=== PATIENT | male | born 1990 | race Caucasian/White ===

== ENCOUNTER 2018-07-30 15:28 | Inpatient (IN) | payer OTHER ==
[~2018-07-30] VITALS: Ht 175.3 cm; Wt 240.4 kg
[2018-07-30 15:33] VITALS: BP 144/87
--- NOTE | 2018-07-30 15:46 | NUR ---
27 YO MALE BIB EMS FROM HOME FOR SUICIDAL IDEATIONJ, AWAKE AND ALERT ON ARRIVAL. PLACED ON HLD BY [place] [employer]. . DENIES N/V/D; SKIN IS PINK/WARM/DRY; AAOX4 WITH EVEN AND STEADY GAIT; LUNGS CLEAR BL; HR EVEN AND REGULAR; PT DENIES ANY FEVER, CP, SOB, OR COUGH AT THIS TIME; PATIENT STATES PAIN OF 0/10 AT THIS TIME; VSS; PATIENT POSITIONED FOR COMFORT; HOB ELEVATED; BEDRAILS UP X2; BED DOWN. ER MD MADE AWARE OF PT STATUS.
[2018-07-30 16:09] LABS: BASOPHILS % (AUTO) 0.6 % (0.0-2.0); EOSINOPHILS % (AUTO) 0.2 % (0.0-4.0); HEMATOCRIT 50.4 % (36-52); HEMOGLOBIN 16.7 g/dL (12.0-18.0); LYMPHOCYTES # (AUTO) 1.3 K/uL (2.0-11.5); LYMPHOCYTES % (AUTO) 15.8 % (20.5-51.1); MEAN CORPUSCULAR HEMOGLOBIN 31 pg (27-31); MEAN CORPUSCULAR HGB CONC 33 g/dL (33-37); MEAN CORPUSCULAR VOLUME 92.6 fL (80-94); MONOCYTES # (AUTO) 0.6 K/uL (0.8-1.0); MONOCYTES % (AUTO) 7.9 % (1.7-9.3); NEUTROPHILS # (AUTO) 6.2 K/uL (1.8-7.7); NEUTROPHILS % (AUTO) 75.5 % (42.2-75.2); PLATELET COUNT (AUTO) 218 K/uL (140-450); RED BLOOD CELL COUNT(AUTO) 5.44 MIL/uL (4.20-6.10); RED CELL DISTRIBUTION WIDTH 14.2 % (11.6-13.7); WHITE BLOOD COUNT (AUTO) 8.2 K/uL (4.8-10.8)
--- NOTE | 2018-07-30 16:15 | NUR ---
PT CALMS DONE, DENIES ANY PLAN TO HURT HIMSELF OR OTHER PEOPLE AT THIS TIME.
[2018-07-30 16:39] LABS: BARBITURATE, URINE NEG. ng/ml (NEG <=200); BENZODIAZEPINE, URINE NEG. ng/mL (NEG <=200); CANNABINOID, URINE NEG. ng/mL (NEG <=50); COCAINE, URINE NEG. ng/mL (NEG <=300); OPIATE, URINE NEG. ng/mL (NEG <=2000); PHENCYCLIDINE SCREEN,URINE NEG. ng/mL (NEG <=25)
[2018-07-30 16:57] LABS: ANION GAP 15.5 (8-16); CARBON DIOXIDE 27.4 mmol/L (21-32); CHLORIDE 103 mmol/L (98-107); CREATININE 0.9 mg/dL (0.7-1.3); GFR ARICAN-AMERICAN 128 mL/min (>90); GLUCOSE 110 mg/dL (74-106); POTASSIUM 3.9 mmol/L (3.5-5.1); SODIUM SERUM 142 mmol/L (136-145); UREA NITROGEN, BLOOD 8 mg/dL (7-18)
[2018-07-30 17:03] LABS: ASPARTATE AMINOTRANSFERASE 17 U/L (15-37); TOTAL BILIRUBIN 0.5 mg/dL (0.0-1.0)
[2018-07-30 17:04] LABS: ACETAMINOPHEN < 0.5 ug/ml (10-30); SALICYLATE < 2.8 mg/dL (2.8-20.0)
--- NOTE | 2018-07-30 18:09 | NUR ---
DR GILMER REYES FROM [facility] CALLED AND SPOKE TO PATIENT. DISPOSITION TO BE DETERMINED.
--- NOTE | 2018-07-30 19:34 | NUR ---
Dr. Nichole evaluating patient at bedside.
[2018-07-30] MEDS ORDERED: QUEtiapine FUMARATE 100 MG TAB PO ONE (19:40)
--- NOTE | 2018-07-30 20:00 | NUR ---
PT IN BED RESTING WITH EYES OPEN. SITTER AT BEDSIDE. VSS. CONTINUE TO MONITOR.
[2018-07-30] MEDS ORDERED: QUEtiapine FUMARATE 100 MG TAB ONE (20:08)
--- NOTE | 2018-07-30 20:16 | NUR ---
Patient packet has been received, will call facilities for bed placement.
--- NOTE | 2018-07-30 20:17 | NUR ---
REPORT RECIEVED FROM STEFFANIE JORDAN.
--- NOTE | 2018-07-30 20:25 | NUR ---
PT ATE 100% OF DINNER. Patient appears to be comfortably in bed. Vital Signs within normal limits. Respirations even and unlabored.
--- NOTE | 2018-07-30 21:00 | NUR ---
PT IN BED RESTING WITH EYES OPEN. SITTER AT BEDSIDE. VSS. CONTINUE TO MONITOR.
--- NOTE | 2018-07-30 21:55 | NUR ---
Currently no psych beds available tonight for the patient. I called the following facilities. [facility], s/w Lyudmila, packet was faxed. [facility], s/w Shira, packet was faxed. [facility], no answer, left message. Packet was faxed. [facility], they do not accept 5150 holds written by PD. [facility], s/w Mary Jane, packet was faxed. [facility], s/w Salvador, packet was faxed. [facility], s/w Manjit.
--- NOTE | 2018-07-30 22:00 | NUR ---
PT IN BED RESTING WITH EYES CLOSED. SITTER AT BEDSIDE. VSS. CONTINUE TO MONITOR.
[2018-07-30] MEDS ORDERED: ONDANSETRON 4 MG/2 ML VIAL IVP PRN (22:05)
[2018-07-30] MEDS ORDERED: LORazepam 2 MG/ML VIAL IVP PRN (22:05)
[2018-07-30] MEDS ORDERED: ACETAMINOPHEN 325 MG TAB PO PRN (22:05)
[2018-07-30 22:35] VITALS: BP 101/50
--- NOTE | 2018-07-30 22:35 | NUR ---
REPORT RECEIVED FROM ED NURSE AT BEDSIDE. PT IN STABLE CONDITION. AAOX4. INTRODUCED SELF TO PT. BOARD UPDATED. NO COMPLAINTS OF PAIN. NO AGITATION. NO SOB. AFEBRILE. IV SITE L AC 20G SL PATENT AND INTACT. SKIN WARM, DRY, AND INTACT WITH NO OPEN WOUNDS. BED LOCKED IN LOW POSITION. CALL ADLER WITHIN REACH. SAFETY PRECAUTIONS IN PLACE.
--- NOTE | 2018-07-30 23:45 | NUR ---
PT SLEEPING COMFORTABLY. NO S/S OF DISTRESS NOTED. VS STABLE. WILL CONTINUE TO MONITOR.
[2018-07-31] VITALS: BP 112/59
--- NOTE | 2018-07-31 02:30 | NUR ---
PT SLEEPING COMFORTABLY WITH SITTER AT BEDSIDE. NO S/S OF DISTRESS NOTED. WILL CONTINUE TO MONITOR.
--- NOTE | 2018-07-31 04:30 | NUR ---
PT SLEEPING COMFORTABLY SUPINE IN BED. NO S/S OF DISTRESS. RESPIRATIONS EVEN, UNLABORED, AND WNL. WILL CONTINUE TO MONITOR.
--- NOTE | 2018-07-31 05:59 | NUR ---
Still no updates at any of the psych facilities, will endorse to AM shift.
--- NOTE | 2018-07-31 07:25 | NUR ---
REPORT GIVEN TO AM NURSE AT BEDSIDE. PT IN STABLE CONDITION.
--- NOTE | 2018-07-31 07:53 | NUR ---
REPORT RECEIVED FROM WEDDING PHOTOGRAPHER NURSE AT BEDSIDE. PT IN STABLE CONDITION. AAOX4. INTRODUCED SELF TO PT. BOARD UPDATED. NO COMPLAINTS OF PAIN. NO AGITATION. NO SOB. AFEBRILE. IV SITE L AC 20G, PATENT AND INTACT. SKIN WARM, DRY, AND INTACT WITH NO OPEN WOUNDS. BED LOCKED IN LOW POSITION. CALL ADLER WITHIN REACH. SAFETY PRECAUTIONS IN PLACE.
[2018-07-31 08:00] VITALS: BP 117/77
--- NOTE | 2018-07-31 08:56 | NUR ---
PATIENT HAS BEEN SCREENED AND CATEGORIZED LOW NUTRITION RISK. PATIENT WILL BE SEEN WITHIN 7 DAYS OF ADMISSION. 08/06/[address]
[2018-07-31] MEDS ORDERED: ENOXAPARIN 40 MG/0.4 ML SYR SUBQ SCH (09:00)
--- NOTE | 2018-07-31 10:09 | NUR ---
SPOKE WITH REGARDING PT TAKING LOVENOX. PER 'S ORDERS, ORDER WAS CANCELED AND NOT GIVEN TO PT.
--- NOTE | 2018-07-31 12:06 | NUR ---
Contacted the following facilities, still no beds at this time: [facility], [facility], [facility], [facility], [facility], [facility]. [facility] will continue to follow up through out the day.
--- NOTE | 2018-07-31 13:40 | NUR ---
LEFT A VOICEMAIL MESSAGE TO Eilzabeth HELMS REGARDING THE PSYCH CONSULT. AWAITING FOR CALL BACK.
[2018-07-31 16:00] VITALS: BP 120/74
--- NOTE | 2018-07-31 19:20 | NUR ---
RECD. RESTING IN BED, AWAKE, A/OX4. STATED HE HAS NO SUICIDAL THOUGHTS NOR HURTING SELF AND OTHERS. ADMITTED HIS MIND SEEMS TO BE BLANK, NOTED POOR ATTENTION TO DETAILS AT THIS TIME. IV SALINE LOCK AT THE LEFT AC 20, PATENT AND INTACT. PLAN OF CARE FOR THE SHIFT DISCUSSED. VERBALIZED UNDERSTANDING. DENIES PAIN 0/10.WILL CONTINUE TO MONIOR PATIENT ENSURING SAFETY THROUGHOUT SHIFT BEING THE NURSE SISTER
--- NOTE | 2018-07-31 19:25 | NUR ---
AUNT AND COUSIN CAME TO VISIT. CONVERSING AND PLEASANT TO VISITORS.
--- NOTE | 2018-07-31 19:35 | NUR ---
ENDORSED PT TP CLINICAL LABORATORY ASSISTANT FOR CONTINUITY OF CARE. PT IN STABLE CONDITION.
--- NOTE | 2018-07-31 19:40 | NUR ---
MOTHER CAME WITH PATIENT NEPHEW. SHOWS HAPPY RELATIVES CAME TO VISIT.
--- NOTE | 2018-07-31 20:10 | NUR ---
LYING IN BED, OPEN THE LIGHTS AND STARTED TO READ A BOOK THAT THE MOTHER BROUGHT.
--- NOTE | 2018-07-31 20:20 | NUR ---
INFORMED THAT MD HAD ORDERED A MEDICATION TO BE TAKEN TONIGHT. WHEN ASKED IF HE WANTS TO TAKE IT WITH WATER OR JUICE, DID NOT RESPOND, SEEMS TO BE IN DEEP THOUGHTS THAT HE DOES NOT NOTICE NURSE WAS TRYING TO START A CONVERSATION.
--- NOTE | 2018-07-31 20:30 | NUR ---
WHEN ASKED IF HE WANTS TO TAKE THE SEROQUEL TONIGHT, REFUSED. UNCOMFORTABLE WITH HIS SALINE LOCK AT THE LEFT AC, WANTS HIS IV TO BE TRANSFERRED TO THE HAND.
--- NOTE | 2018-07-31 21:30 | NUR ---
IN BED, HOLDING A CLIPBOARD AND WRITING SOMETHING ON IT.
--- NOTE | 2018-07-31 22:00 | NUR ---
CARE PLANS REVIEWED WITH VERENA VO NIGHTSHIFT NURSE.
--- NOTE | 2018-07-31 22:30 | NUR ---
VERBALIZED HE HAS PROBLEM BUT WOULD NOT TELL ABOUT IT BECAUSE UNABLE TO TELL ABOUT IT, MAKES HIM FEELING CONFUSED AT TIMES.
--- NOTE | 2018-07-31 23:00 | NUR ---
NEW IV LINE INSERTED BY CHARGE NURSE AMEE AT THE RIGHT FOREARM G22.
--- NOTE | 2018-07-31 23:33 | NUR ---
WITH ANXIETY, MEDICATED WITH ATIVAN IVP BY JULIAN LUBIN. FIXED HIS BED AND PREPARED SELF FOR SLEEPING. GAVE TO SECURITY CLOTHES BROUGHT BY [facility] FOR SAFEKEEPING.
[2018-08-01] VITALS: BP 140/74
--- NOTE | 2018-08-01 00:30 | NUR ---
NO ANXIETY, SLEEPING COMFORTABLY IN BED.
--- NOTE | 2018-08-01 02:44 | NUR ---
Follow-up calls were made and still no bed vacancies @ the following contracted facilities. [facility], s/w Prosper. [facility], s/w Pamela. [facility], s/w Valeria. [facility], no answer, left message. [facility], s/w Randall. [facility], s/w Tony. [facility], s/w Sintia. Will continue to call for placement and will endorse to AM shift.
--- NOTE | 2018-08-01 06:17 | NUR ---
STILL SLEEPING COMFORTABLY. COOPERATIVE AND PLEASANT DURING SHIFT. CONDITION REMAIN STABLE. NEW SITTER NEAR DOOR TO MONITOR PATIENT.
--- NOTE | 2018-08-01 06:30 | NUR ---
ENDORSED TO AMEE JORDAN FOR CONTINUITY OF CARE.
--- NOTE | 2018-08-01 07:25 | NUR ---
GAVE REPORT TO CHRISTINA RN DAYSHIFT NURSE AT BEDSIDE FOR CONTINUITY OF CARE, PT IN STABLE CONDITION
--- NOTE | 2018-08-01 07:26 | NUR ---
RECEIVED BEDSIDE REPORT FROM ORTHOPEDIC TECHNICIAN RNAMEE. PT RESTING IN BED, READING. NO DISTRESS NOTED, IV SITE PATENT INTACT, ASYMPTOMATIC, SALINE LOCKED. RESPIRATIONS EVEN AND UNLABORED, NO DISTRESS OR SOB NOTED ON ROOM AIR. PATIENT DENIES PAIN. UPDATED PLAN OF CARE TO PATIENT, HE VERBALIZED UNDERSTANDING. BREAKFAST SET UP FOR PATIENT. PATIENT DX WITH SI, ON 5150 HOLD. SAFETY PRECAUTIONS IN PLACE, 1:1 SITTER AT BEDSIDE, WILL CONTINUE TO MONITOR PATIENT.
[2018-08-01 08:00] VITALS: BP 122/77
--- NOTE | 2018-08-01 08:10 | NUR ---
PATIENT SHOWERED AND CHANGED CLOTHING AND GOWN. 1:[address] PATIENT NOW RESTING IN BED READING, NO COMPLAINTS AT THIS TIME. WILL CONTINUE TO MONITOR PATIENT.
--- NOTE | 2018-08-01 10:40 | NUR ---
PATIENT RESTING COMFORTABLY IN BED, NO SIGN OF DISTRESS NOTED. FAMILY AT BEDSIDE. 1:[address], WILL CONTINUE TO MONITOR PATIENT.
--- NOTE | 2018-08-01 11:25 | NUR ---
PATIENT'S MOTHER REQUESTED FOR PATIENT'S BELONGINGS. SECURITY PAGED FOR PATIENT'S BELONGINGS. BELONGINGS GIVEN TO PATIENT. THEY TOOK HOME PATIENT'S BELONGINGS.
--- NOTE | 2018-08-01 13:45 | NUR ---
PATIENT RESTING COMFORTABLY IN BED WITH EYES CLOSED, ALL NEEDS MET AT THIS TIME. SAFETY PRECAUTIONS IN PLACE, 1:[address], CALL LIGHT WITHIN REACH, WILL CONTINUE TO MONITOR PATIENT.
--- NOTE | 2018-08-01 14:13 | NUR ---
DR. HERNANDEZ IN TO SEE THE PATIENT. PAGED DR. PEMBERTON [employer] AT [phone] TO FOLLOW UP WITH CONSULT. SPOKE TO PRITESH AT THE EXCHANGE, DR. PEMBERTON ROTARY DRILL OPERATOR, PAGED WAS SENT OUT. WILL WAIT FOR DR. PEMBERTON TO COME AND EVALUATE THE PATIENT.
[2018-08-01 16:00] VITALS: BP 125/67
--- NOTE | 2018-08-01 16:19 | NUR ---
[facility]ed the [facility] for [facility]: [facility], s/w Tiara, no beds, patient packet on file for review [facility], s/w Ventura, no beds available, patient packet on file for review [facility], s/w Tera, no beds [facility], s/w Marycarmen, faxed packet for review [facility], s/w Sadie, no beds [facility], s/w Junaid, pending d/c
--- NOTE | 2018-08-01 18:30 | NUR ---
MOTHER AND AUNT AT BEDSIDE. PATIENT HAS NO COMPLAINTS AT THIS TIME. SAFETY PRECAUTIONS IN PLACE, 1:1 SITTER AT SIDE, WILL CONTINUE TO MONITOR PATIENT.
--- NOTE | 2018-08-01 19:05 | NUR ---
RECEIVED REPORT FROM DAY SHIFT NURSEJODY, AT PT BEDSIDE. PT IN STABLE CONDITION. PT FAMILY IS AT BEDSIDE. PT IS AWAKE, CALM MOOD AND RELAXED. RESPIRATIONS ARE EVEN AND UNLABORED. IV ACCESS IN R FA 22G, SALINE LOCKED. IV IS PATENT AND INTACT. PT SKIN IS INTACT. 1:1 SITTER IN ROOM. BED IS LOCKED, LOW POSITION, WITH SIDE RAILS UP X2. WILL CONTINUE TO MONITOR PT.
--- NOTE | 2018-08-01 19:05 | NUR ---
REPORT GIVEN TO OCEANIC SCIENCES PROFESSOR RN AT BEDSIDE FOR CONTINUITY OF CARE. PATIENT IN STABLE CONDITION.
--- NOTE | 2018-08-01 19:28 | NUR ---
PT FAMILY LEFT. PT LAYING IN BED READING. NO SIGNS OR SYMPTOMS OF DISTRESS. 1:1 SITTER IN ROOM.
--- NOTE | 2018-08-01 20:51 | NUR ---
PT UP TO USE RESTROOM. PT CALM AND RELAXED. NO S/SX OF DISTRESS. 1:1 SITTER IN ROOM.
[2018-08-02] VITALS: BP 127/83
--- NOTE | 2018-08-02 00:17 | NUR ---
PT VS TAKEN AND WITHIN NORMAL LIMITS. PT IS LYING CALMLY IN BED. NO S/SX OF DISTRESS. 1:1 SITTER IN ROOM. WILL CONTINUE TO MONITOR.
--- NOTE | 2018-08-02 03:00 | NUR ---
PT ASLEEP IN BED WITH NO S/SX OF DISTRESS. VASCULAR PHYSICIAN, LYNDON WILL NOW SIT 1:1 WHILE ON LUNCH.
--- NOTE | 2018-08-02 03:33 | NUR ---
RETURNED FROM LUNCH NOW 1:1 SITTER FOR PT. PT IS SLEEPING IN BED. NO S/SX OF DISTRESS. WILL CONTINUE TO MONITOR.
--- NOTE | 2018-08-02 07:11 | NUR ---
ENDORSED PT TO DAY SHIFT NURSE FOR CONTINUITY OF CARE. PT IN STABLE CONDITION.
--- NOTE | 2018-08-02 07:12 | NUR ---
RECEIVED REPORT FROM BARKER PEELER RN AT BEDSIDE FOR CONTINUITY OF CARE. PATIENT SLEEPING COMFORTABLY IN BED, RESPIRATIONS EVEN AND UNLABORED ON ROOM AIR. IV SITE PATENT AND INTACT, SALINE LOCKED. PATIENT DX IS 5150 FOR SI. SAFETY PRECAUTION IN PLACE, 1:1 SITTER AT BEDSIDE, WILL CONTINUE TO MONITOR PATIENT.
--- NOTE | 2018-08-02 07:53 | NUR ---
PAGED DR. [facility]ON [employer] AT [phone] TO FOLLOW UP WITH CONSULT. SPOKE TO LNYDON AT THE EXCHANGE, DR. PEMBERTON ASSEMBLER ADJUSTER FOR THE WEEKEND, PAGED WAS SENT OUT. WILL WAIT FOR DR. PEMBERTON TO COME AND EVALUATE THE PATIENT.
[2018-08-02 08:00] VITALS: BP 127/82
--- NOTE | 2018-08-02 08:06 | NUR ---
PATIENT SITTING UP IN BED, NO SIGNS OF DISTRESS OR SOB NOTED ON ROOM AIR, RESPIRATIONS EVEN AND UNLABORED. PATIENT DENIES PAIN. PATIENT STATES THAT "I FEEL RELAXED". SAFETY PRECAUTIONS IN PLACE, 1:1 SITTER AT BEDSIDE, WILL CONTINUE TO MONITOR PATIENT.
--- NOTE | 2018-08-02 09:00 | NUR ---
CALLED DR. PEMBERTON'S EXCHANGE. THEY SAID DR. SHENG PEMBERTON PHARMACEUTICAL PROCESS ENGINEER. CALLED DR. SHENG PEMBERTON ON HIS CELL PHONE AT [phone]. DR. PEMBERTON ANSWERED, STATED THAT DR. MARY COVERS [facility], INFORM RN TO CALL DR. MARY, IF NO ANSWER, TO CALL HIM BACK. RN VERBALIZED UNDERSTANDING. PASSED MESSAGE [place] LOADERDANIELLE.
--- NOTE | 2018-08-02 09:05 | NUR ---
GROUP THERAPY COUNSELOR DANIELLE CALLED DR SHENG PEMBERTON AND INFORMED HIM THAT DR. MARY HAS NOT COME TO EVALUATE PATIENT SINCE CONSULT WAS CALLED ON 07/31/18. DR. PEMBERTON STATED THAT HE WILL COME IN TODAY TO SEE THE PATIENT.
--- NOTE | 2018-08-02 10:35 | NUR ---
PATIENT RESTING IN BED WITH EYES CLOSED, RESPIRATIONS EVEN AND UNLABORED ON ROOM AIR. 1:[address], WILL CONTINUE TO MONITOR PATIENT.
--- NOTE | 2018-08-02 10:45 | NUR ---
SAID NIECY IN TO SEE THE PATIENT. SPOKE TO PATIENT. WILL WAIT FOR HIS EVALUATION. DR. PEMBERTON ALSO CALLED PATIENT'S SISTER OLIVERIO TO UPDATE HER ON PATIENT'S CONDITION.
--- NOTE | 2018-08-02 11:30 | NUR ---
PER DR. PEMBERTON, PATIENT WILL BE STARTED ON ABILIFY AND LEXAPRO. DR. PEMBERTON WILL RETURN TOMORROW TO EVALUATE PATIENT'S STATUS. EDUCATION ON ABILIFY AND AND LEXAPRO PRINTED OUT FOR PATIENT TO READ. PATIENT NOW RESTING IN BED READING EDUCATION, NO SIGN OF DISTRESS NOTED ON ROOM AIR. 1:[address], WILL CONTINUE TO MONITOR PATIENT.
--- NOTE | 2018-08-02 12:40 | NUR ---
PATIENT CURRENTLY SITTING UP IN BED EATING LUNCH. RESPIRATIONS EVEN AND UNLABORED ON ROOM AIR. 1:[address], WILL CONTINUE TO MONITOR PATIENT.
--- NOTE | 2018-08-02 14:15 | NUR ---
PATIENT RESTING IN BED WITH EYES CLOSED, DR. HERNANDEZ IN TO SEE THE PATIENT.
--- NOTE | 2018-08-02 15:38 | NUR ---
Called the following facilities for placement: [facility], s/w Sintia, no beds [facility], no beds [facility], s/w Marycarmen, faxed packet for review [facility]/w Hemalatha, faxed packet for review
[2018-08-02 16:00] VITALS: BP 116/73
--- NOTE | 2018-08-02 16:32 | NUR ---
ORDERED MEDICATIONS GIVEN. PATIENT TOLERATED IT WELL. PATIENT NOW RESTING IN BED, RESPIRATIONS EVEN AND UNLABORED, NO COMPLAINTS AT THIS TIME. 1:[address], WILL CONTINUE TO MONITOR PATIENT.
[2018-08-02] MEDS ORDERED: ESCITALOPRAM 20 MG TAB PO SCH (17:00)
--- NOTE | 2018-08-02 17:55 | NUR ---
MOTHER AND AUNT VISITING. PATIENT SITTING UP IN BED TALKING, RELAXED. RESPIRATIONS EVEN AND UNLABORED ON ROOM AIR. 1:[address], CALL LIGHT WITHIN REACH. WILL CONTINUE TO MONITOR PATIENT.
--- NOTE | 2018-08-02 19:10 | NUR ---
REPORT GIVEN TO PROPERTY ACCOUNTANT RN, RADHA, AT BEDSIDE FOR CONTINUITY OF CARE. PATIENT IN STABLE CONDITION, FINISHED EATING DINNER, AND NOW RESTING IN BED COMFORTABLY.
--- NOTE | 2018-08-02 19:11 | NUR ---
RECEIVED PT IN STABLE CONDITION FROM AM NURSE. ON 1:1 SITTER. MED SURG. AWAKE,ALERT AND ORIENTED X4. FAMILY WHO VISITED JUST LEFT . WITH HL ON THE RT FAG#[phone]. CLEAR AND PATENT. JUST GOT UP TO THE BATHROOM . VOIDED. BED ON LOWEST POSITION,SIDE RAILS UP X2. FREQUENT CHECK NEEDED. WILL CONTINUE TO CLOSELY MONITOR PT.
--- NOTE | 2018-08-02 19:45 | NUR ---
UP TO THE BATHROOM AND VOIDED. PT CALM AND NO SIGNS OF ANY AGITATION NOR ANXIETY NOTED.
--- NOTE | 2018-08-02 20:00 | NUR ---
PT IS STARTED TO GET SOME SLEEP. ASSIST PT FOR COMFORT IN BED.
--- NOTE | 2018-08-02 21:30 | NUR ---
PT HAS BEEN SLEEPING WELL. NO S/S OF ANY DISCOMFORT NOTED.
[2018-08-02 23:25] VITALS: BP 115/73
--- NOTE | 2018-08-02 23:30 | NUR ---
VITAL SIGNS TAKEN. STABLE. WILL CONTINUE TO MONITOR.
--- NOTE | 2018-08-03 01:15 | NUR ---
PT AWAKE. FEEL COLD ,TEMP ON ROOM ADJUSTED AND PROVIDED WARM BLANKET.
--- NOTE | 2018-08-03 02:13 | NUR ---
still no bed vacancies @ the following psych facilities. [facility], s/w Julito. [facility], s/w Bita. [facility], s/w Sarah. [facility], s[facility]w Maira. [facility], s/w Anamaria. [facility], s/w Milagro.
--- NOTE | 2018-08-03 04:00 | NUR ---
NO SIGNS OF ANY ANXIETY ,AGITATION AND SUICIDAL THOUGHTS NOTED AT THIS TIME. WILL CONTINUE TO MONITOR.
--- NOTE | 2018-08-03 06:00 | NUR ---
PT HAS BEEN STABLE DURING THE NIGHT. NO SIGNS OF ANY SUICIDAL THOUGHTS NOTED. WILL CONTINUE TO MONITOR.
--- NOTE | 2018-08-03 07:12 | NUR ---
ENDORSED PT IN STABLE CONDITION TO AM NURSE FOR CONTINUITY OF CARE.
--- NOTE | 2018-08-03 07:13 | NUR ---
REVEIVED REPORT FROM PM NURSE AT BEDSIDE. PT DX SI. SLEEPING COMFORTABLY IN HIS BED. HAS RT FA 22 G, SL LOCK. SITTER AT THE BEDSIDE. NO SIGN OF DISTRESS NOTED. VS RECORDED, WITHIN NORMAL LIMIT. PT WAITING FOR PSYCH PLACEMENT. WILL CONTINUE TO MONITOR PT.
[2018-08-03 07:55] VITALS: BP 104/65
[2018-08-03] MEDS ORDERED: ARIPiprazole 10 MG TAB PO SCH ×2 (09:00)
--- NOTE | 2018-08-03 09:00 | NUR ---
ADMINISTERED MEDS TO PT ORDERED. PT CALM AND COOPERATIVE. SLEEPING ON HIS BED. NO SIGN OF AGITATION OR ANY BEHAVIORAL PROBLEM. PT TOLERATED MEDS WELL. INFORMED HIM THAT PSYCHIATRIC WILL SEE PT TODAY. WAITING FOR PSYCH PLACEMENT. VERBALIZED UNDERSTANDING OF TEACHING. WILL CONTINUE TO MONITOR PT.
--- NOTE | 2018-08-03 10:16 | NUR ---
Called [facility], s/w House SUP. No beds.
--- NOTE | 2018-08-03 10:42 | NUR ---
Packet faxed to Enrico at [facility].
--- NOTE | 2018-08-03 10:54 | NUR ---
CHECKED ON PT . PT CALM, SLEEPING ON HIS BED AT THIS TIME. NO SIGN OF DISTRESS NOTED. WILL CONTINUE TO MONITOR PT.
--- NOTE | 2018-08-03 13:01 | NUR ---
[facility] CALL[facility] AND SAID PATIENT IS ACCEPTED AT [facility] UNIT [address] BED 1002A AND THE ACCEPTING MD IS DR. RIVERA. SHE WILL CALL US BACK FOR PHONE NUMBER TO GIVE REPORT.
--- NOTE | 2018-08-03 13:01 | NUR ---
CHECKED ON PT . LAYING ON HIS BED GOOD. NO SIGN OF DISTRESS, NO SIGN OF ANXIETY . WILL CONTINUE TO MONITOR PT.
--- NOTE | 2018-08-03 13:45 | NUR ---
RECEIVED CALL FROM JULIAN MORA FROM [facility] TO GET REPORT ON PT . GAVE HER REPORT. PT DX SI , DTS AND DTO. HAS PHM OF ALCHOL ABUSE, ANXIRTY AND PANIC ATTACKS. SKIN IS INTACT.PT WAS HOLD LAST TIME WAS ACTIVE FROM 08/02/18 FROM 1125 BY . ASKING FOR ETA OF PT, CN WORKING ON IT. WILL CONTINUE TO MONITOR PT.
--- NOTE | 2018-08-03 14:00 | NUR ---
CALLED [facility]TS FOUZIA AGUIAR AT [phone] . PHONE NOT RECEIVED. LEFT VOICE MAIL WITH INFORMATION WHERE PT WAS GOING. PT TO GO TO [facility], AT [address] [address] PH# [phone]. PT INFORMED THAT HE IS LEAVING FOR THE PSYCH FACILITY, WILL HAVE JANITORIAL SERVICES SUPERVISOR TIME IN AN HOUR. WILL CONTINUE TO MONITOR PT.
--- NOTE | 2018-08-03 14:45 | NUR ---
PT LEFT WITH [facility] FOR THE PSYCH FACILITY. PT WAS GIVEN DC PACKET WITH INSTRUCTION . PACKET WAS PROVIDED TO [facility] WELL BY WINDOW CASER. PT STABLE AND FULL CODE AT TIME OF DISCHARGE.
== END 2018-08-03 14:45 | DRG 756 ==
LOC: MED 15:28 → MTU 22:01
PROVIDERS: ADMIT Hospitalist; ATTEND Hospitalist
DX: F41.9 Anxiety disorder, unspecified (principal); F32.3 Major depressive disorder, single episode, severe with psychotic features
CPT/HCPCS: 36415; 80053; 80305; 85025; 87081; 99285; G0480; G0482; J1650; J2060